=== PATIENT | female | born 1935 | race Caucasian/White ===

== ENCOUNTER 2018-07-12 12:17 | Inpatient (IN) | payer MEDICARE, OTHER ==
[2018-07-12 13:07] LABS: ADD MAN DIFF? NO
[2018-07-12] MEDS: morphine 4 MG/ML VIAL IV (13:08)
[2018-07-12] MEDS: ONDANSETRON 4 MG INJ IV (13:08)
[2018-07-12] MEDS: ASPIRIN 325 MG TAB PO (13:09)
[2018-07-12] MEDS: NITROGLYCERIN 2% 1 GM OINT PKT TD (13:09)
[2018-07-12 13:13] LABS: WHITE BLOOD COUNT 8.6 10^3/ul (4.8-10.8)
[2018-07-12 13:13] LABS: BASOPHIL # 0.1 10^3/ul (0.0-0.1); BASOPHILS % 0.7 % (0.0-2.0); EOSINOPHILS # 0.2 10^3/ul (0.0-0.5); EOSINOPHILS % 2.3 % (0.0-7.0); HEMATOCRIT 31.7 % (37.0-47.0); HEMOGLOBIN 10.6 g/dl (12.0-16.0); LYMPHOCYTES # 1.7 10^3/ul (0.8-2.9); LYMPHOCYTES % 20.3 % (15.0-51.0); MEAN CORPUSCULAR HEMOGLOBIN 31.9 pg (29.0-33.0); MEAN CORPUSCULAR HGB CONC 33.4 g/dl (32.0-37.0); MEAN CORPUSCULAR VOLUME 95.5 fl (82.0-101.0); MEAN PLATELET VOLUME 9.6 fl (7.4-10.4); MONOCYTE # 0.7 10^3/ul (0.3-0.9); MONOCYTES % 8.5 % (0.0-11.0); NEUTROPHIL # 5.8 10^3/ul (1.6-7.5); NEUTROPHILS % 67.7 % (39.0-77.0); PLATELET COUNT 221 10^3/UL (140-415); RED BLOOD COUNT 3.32 10^6/ul (4.20-5.40); RED CELL DISTRIBUTION WIDTH 12.8 % (11.5-14.5)
[2018-07-12 13:32] LABS: ALANINE AMINOTRANSFERASE 86 IU/L (13-69); ALBUMIN/GLOBULIN RATIO 1.33; ALKALINE PHOSPHATASE 62 IU/L (42-121); ANION GAP 11 (5-13); ASPARTATE AMINO TRANSFERASE 57 IU/L (15-46); BILIRUBIN,INDIRECT 0.1 mg/dl (0-1.1); BILIRUBIN,TOTAL 0.1 mg/dl (0.2-1.3); BLOOD UREA NITROGEN 30 mg/dl (7-20); CALCIUM 9.4 mg/dl (8.4-10.2); CARBON DIOXIDE 22 mmol/L (21-31); CHLORIDE 101 mmol/L (97-110); CREATININE 0.95 mg/dl (0.44-1.00); GLUCOSE 119 mg/dl (70-220); SODIUM 134 mmol/L (135-144)
[2018-07-12 13:44] LABS: B-TYPE NATRIURETIC PEPTIDE 4000 PG/ML (0-450); TROPONIN-I < 0.012 ng/ml (0.000-0.120)
[2018-07-12] MEDS ORDERED: ACETAMINOPHEN 325 MG TAB PO (14:30)
[2018-07-12] MEDS ORDERED: ALPRAZOLAM 0.5 MG TAB PO (14:30)
[2018-07-12] MEDS: FUROSEMIDE 40 MG INJ IV ×2 (16:21→18:00)
[2018-07-12] MEDS: LOSARTAN 50 MG TAB PO (16:23)
[2018-07-12] MEDS ORDERED: morphine 2 MG INJ IV (16:30)
[2018-07-12] MEDS ORDERED: NACL 0.9% 3 ML SYG IV (16:30)
[2018-07-12] MEDS ORDERED: PROPRANOLOL 20 MG TAB PO (17:00)
[2018-07-12] MEDS: ALBUTEROL/IPRATROPIUM (NEB) 3 ML AMP HHN (17:10)
[2018-07-12 19:37] LABS: CREATINE KINASE 24 IU/L (23-200)
[2018-07-12 19:47] LABS: CK INDEX 3.7; CK-MB 0.88 ng/ml (0.0-2.4)
[2018-07-12 19:51] LABS: TROPONIN-I < 0.012 ng/ml (0.000-0.120)
[2018-07-12] MEDS ORDERED: PROPRANOLOL 10 MG TAB PO (21:00)
[2018-07-12] MEDS: RANOLAZINE (SR) 500 MG TAB PO (23:18)
[2018-07-13 01:29] LABS: CREATINE KINASE 26 IU/L (23-200)
[2018-07-13 02:02] LABS: CK INDEX 2.8; CK-MB 0.73 ng/ml (0.0-2.4); TROPONIN-I 0.013 ng/ml (0.000-0.120)
[2018-07-13 05:15] LABS: ADD MAN DIFF? NO
[2018-07-13 05:26] LABS: WHITE BLOOD COUNT 8.1 10^3/ul (4.8-10.8)
[2018-07-13 05:26] LABS: BASOPHIL # 0.1 10^3/ul (0.0-0.1); BASOPHILS % 0.6 % (0.0-2.0); EOSINOPHILS # 0.3 10^3/ul (0.0-0.5); EOSINOPHILS % 3.3 % (0.0-7.0); HEMATOCRIT 29.2 % (37.0-47.0); HEMOGLOBIN 9.7 g/dl (12.0-16.0); LYMPHOCYTES # 1.7 10^3/ul (0.8-2.9); LYMPHOCYTES % 20.9 % (15.0-51.0); MEAN CORPUSCULAR HEMOGLOBIN 31.5 pg (29.0-33.0); MEAN CORPUSCULAR HGB CONC 33.2 g/dl (32.0-37.0); MEAN CORPUSCULAR VOLUME 94.8 fl (82.0-101.0); MEAN PLATELET VOLUME 9.6 fl (7.4-10.4); MONOCYTE # 0.7 10^3/ul (0.3-0.9); MONOCYTES % 8.8 % (0.0-11.0); NEUTROPHIL # 5.4 10^3/ul (1.6-7.5); PLATELET COUNT 200 10^3/UL (140-415); RED BLOOD COUNT 3.08 10^6/ul (4.20-5.40); RED CELL DISTRIBUTION WIDTH 12.7 % (11.5-14.5)
[2018-07-13] MEDS: FUROSEMIDE 40 MG INJ IV ×2 (05:35→17:19)
[2018-07-13 05:51] LABS: HEMOGLOBIN A1C 5.7 % (0-5.9)
[2018-07-13 05:51] LABS: ALANINE AMINOTRANSFERASE 71 IU/L (13-69); ALBUMIN 3.2 g/dl (3.3-4.9); ALBUMIN/GLOBULIN RATIO 1.18; ALKALINE PHOSPHATASE 49 IU/L (42-121); ANION GAP 10 (5-13); ASPARTATE AMINO TRANSFERASE 31 IU/L (15-46); BILIRUBIN,INDIRECT 0.3 mg/dl (0-1.1); BILIRUBIN,TOTAL 0.3 mg/dl (0.2-1.3); BLOOD UREA NITROGEN 31 mg/dl (7-20); CARBON DIOXIDE 25 mmol/L (21-31); CHLORIDE 100 mmol/L (97-110); CREATININE 1.12 mg/dl (0.44-1.00); GLUCOSE 94 mg/dl (70-220); POTASSIUM 4.2 mmol/L (3.5-5.1); SODIUM 135 mmol/L (135-144); TOTAL PROTEIN 5.9 g/dl (6.1-8.1)
[2018-07-13] MEDS: LOSARTAN 50 MG TAB PO (08:53)
[2018-07-13] MEDS: RANOLAZINE (SR) 500 MG TAB PO ×2 (08:54→20:38)
[2018-07-13] MEDS ORDERED: MEMANTINE 5 MG TAB PO (09:00)
[2018-07-13] MEDS ORDERED: MELOXICAM 15 MG TAB PO (09:00)
[2018-07-13] MEDS ORDERED: TRIAMTERENE/HCTZ (37.5-25) CAP PO (09:00)
[2018-07-13] MEDS: ENOXAPARIN 30 MG/0.3 ML SYG SC (09:03)
[2018-07-13] MEDS: ISOSORBIDE DINITRATE 20 MG TAB PO ×2 (13:19→20:39)
[2018-07-14] MEDS: FUROSEMIDE 40 MG INJ IV (05:11)
[2018-07-14 05:57] LABS: ADD MAN DIFF? NO
[2018-07-14 06:02] LABS: BASOPHIL # 0.1 10^3/ul (0.0-0.1); BASOPHILS % 0.6 % (0.0-2.0); EOSINOPHILS # 0.2 10^3/ul (0.0-0.5); EOSINOPHILS % 2.7 % (0.0-7.0); HEMATOCRIT 31.6 % (37.0-47.0); LYMPHOCYTES # 1.6 10^3/ul (0.8-2.9); LYMPHOCYTES % 17.9 % (15.0-51.0); MEAN CORPUSCULAR HEMOGLOBIN 32.2 pg (29.0-33.0); MEAN CORPUSCULAR HGB CONC 34.8 g/dl (32.0-37.0); MEAN CORPUSCULAR VOLUME 92.4 fl (82.0-101.0); MEAN PLATELET VOLUME 9.9 fl (7.4-10.4); MONOCYTE # 0.8 10^3/ul (0.3-0.9); MONOCYTES % 9.4 % (0.0-11.0); NEUTROPHIL # 6.1 10^3/ul (1.6-7.5); NEUTROPHILS % 69.1 % (39.0-77.0); PLATELET COUNT 232 10^3/UL (140-415); RED BLOOD COUNT 3.42 10^6/ul (4.20-5.40); RED CELL DISTRIBUTION WIDTH 12.4 % (11.5-14.5)
[2018-07-14 06:02] LABS: WHITE BLOOD COUNT 8.8 10^3/ul (4.8-10.8)
[2018-07-14 06:46] LABS: ANION GAP 10 (5-13); BLOOD UREA NITROGEN 35 mg/dl (7-20); CALCIUM 9.6 mg/dl (8.4-10.2); CARBON DIOXIDE 30 mmol/L (21-31); CHLORIDE 93 mmol/L (97-110); CREATININE 1.17 mg/dl (0.44-1.00); GLUCOSE 129 mg/dl (70-220); IRON 38 ug/dl (35-150); POTASSIUM 4.2 mmol/L (3.5-5.1); SODIUM 133 mmol/L (135-144)
[2018-07-14 06:55] LABS: % IRON SATURATION 13 % SAT (22-52); TOTAL IRON BINDING CAPACITY 300 ug/dl (241-421)
[2018-07-14 07:23] LABS: FERRITIN 89.9 ng/ml (11.1-264.0)
[2018-07-14] MEDS: ASPIRIN 81 MG TAB PO (09:50)
[2018-07-14] MEDS: RANOLAZINE (SR) 500 MG TAB PO (09:50)
[2018-07-14] MEDS: ISOSORBIDE DINITRATE 20 MG TAB PO ×2 (09:50→15:44)
[2018-07-14] MEDS: LOSARTAN 50 MG TAB PO (09:51)
[2018-07-14] MEDS: ENOXAPARIN 30 MG/0.3 ML SYG SC (10:19)
[2018-07-14] MEDS: REGADENOSON 0.4 MG/5 ML SYG (13:35)
== END 2018-07-14 18:39 | disposition home or self-care (01) | DRG 291 ==
LOC: E/R 12:17 → 6WM 07-13 19:01 → ICU 18:06
PROC: C22G1ZZ Tomographic (Tomo) Nuclear Medicine Imaging of Myocardium using Technetium 99m (Tc-99m) (ICD-10-PCS; principal; 2018-07-14)
PROC: 4A02XM4 Measurement of Cardiac Total Activity, External Approach (ICD-10-PCS; 2018-07-14)
PROC: 3E033HZ Introduction of Radioactive Substance into Peripheral Vein, Percutaneous Approach (ICD-10-PCS; 2018-07-14)
DX: I11.0 Hypertensive heart disease with heart failure (principal); J96.91 Respiratory failure, unspecified with hypoxia; I16.1 Hypertensive emergency; I25.10 Atherosclerotic heart disease of native coronary artery without angina pectoris; I50.33 Acute on chronic diastolic (congestive) heart failure; Z95.1 Presence of aortocoronary bypass graft; D64.9 Anemia, unspecified; R74.0 Nonspecific elevation of levels of transaminase and lactic acid dehydrogenase [LDH]; E11.9 Type 2 diabetes mellitus without complications; E78.5 Hyperlipidemia, unspecified; Z95.5 Presence of coronary angioplasty implant and graft; F41.9 Anxiety disorder, unspecified
CPT/HCPCS: 36415; 71045; 78452; 80048; 80053; 82550; 82553; 82728; 83036; 83540; 83880; 84484; 85025; 87081; 90686; 93005; 93017; 93306; 94664; 97162; 99217; 99285-25; G0378

== ENCOUNTER 2018-07-21 07:41 | Observation (INO) | payer MEDICARE, OTHER ==
[2018-07-21 08:26] LABS: ADD MAN DIFF? NO
[2018-07-21 08:31] LABS: WHITE BLOOD COUNT 7.5 10^3/ul (4.8-10.8)
[2018-07-21 08:31] LABS: BASOPHIL # 0.1 10^3/ul (0.0-0.1); BASOPHILS % 0.7 % (0.0-2.0); EOSINOPHILS # 0.5 10^3/ul (0.0-0.5); HEMATOCRIT 30.7 % (37.0-47.0); HEMOGLOBIN 10.3 g/dl (12.0-16.0); LYMPHOCYTES # 1.8 10^3/ul (0.8-2.9); LYMPHOCYTES % 23.5 % (15.0-51.0); MEAN CORPUSCULAR HEMOGLOBIN 31.7 pg (29.0-33.0); MEAN CORPUSCULAR HGB CONC 33.6 g/dl (32.0-37.0); MEAN CORPUSCULAR VOLUME 94.5 fl (82.0-101.0); MEAN PLATELET VOLUME 9.4 fl (7.4-10.4); MONOCYTE # 0.6 10^3/ul (0.3-0.9); MONOCYTES % 8.1 % (0.0-11.0); NEUTROPHIL # 4.6 10^3/ul (1.6-7.5); NEUTROPHILS % 61.4 % (39.0-77.0); PLATELET COUNT 202 10^3/UL (140-415); RED BLOOD COUNT 3.25 10^6/ul (4.20-5.40); RED CELL DISTRIBUTION WIDTH 12.4 % (11.5-14.5)
[2018-07-21 08:35] LABS: ANION GAP 6 (5-13); BLOOD UREA NITROGEN 34 mg/dl (7-20); CALCIUM 9.2 mg/dl (8.4-10.2); CARBON DIOXIDE 27 mmol/L (21-31); CHLORIDE 102 mmol/L (97-110); CREATININE 1.14 mg/dl (0.44-1.00); GLUCOSE 140 mg/dl (70-220); POTASSIUM 4.3 mmol/L (3.5-5.1); SODIUM 135 mmol/L (135-144)
[2018-07-21 08:47] LABS: TROPONIN-I < 0.012 ng/ml (0.000-0.120)
[2018-07-21] MEDS: ASPIRIN 81 MG TAB PO (09:00)
[2018-07-21] MEDS: NITROGLYCERIN (SL) 0.4 MG TAB SL (09:01)
[2018-07-21] MEDS: FUROSEMIDE 40 MG INJ IV ×2 (09:01→17:21)
[2018-07-21] MEDS: NITROGLYCERIN 2% 1 GM OINT PKT TD (09:02)
[2018-07-21] MEDS ORDERED: ONDANSETRON 4 MG INJ IV ×2 (09:30→14:30)
[2018-07-21] MEDS ORDERED: ACETAMINOPHEN 325 MG TAB PO ×2 (09:30→14:30)
[2018-07-21 14:25] LABS: INR 1.14; PROTIME 14.8 Sec (11.9-14.9); PT RATIO 1.2
[2018-07-21 14:26] LABS: PARTIAL THROMBOPLASTIN TIME 29.3 Sec (23.0-35.0)
[2018-07-21] MEDS ORDERED: NACL 0.9% 3 ML SYG IV (14:30)
[2018-07-21] MEDS ORDERED: HYDROCODONE/APAP (5/325) TAB PO (14:30)
[2018-07-21] MEDS ORDERED: morphine 2 MG INJ IV (14:30)
[2018-07-21] MEDS ORDERED: MAGNESIUM HYDROXIDE 30ML CUP PO (14:30)
[2018-07-21] MEDS ORDERED: traMADol 50 MG TAB PO (14:30)
[2018-07-21] MEDS ORDERED: LORAZEPAM 2 MG INJ IV (14:30)
[2018-07-21] MEDS ORDERED: DOCUSATE SODIUM 100 MG CAP PO (14:30)
[2018-07-21] MEDS ORDERED: ALBUTEROL/IPRATROPIUM (NEB) 3 ML AMP HHN (14:30)
[2018-07-21] MEDS ORDERED: NITROGLYCERIN (SL) 0.4 MG TAB SL (14:30)
[2018-07-21] MEDS ORDERED: hydrALAzine 20 MG INJ IV (14:30)
[2018-07-21] MEDS ORDERED: NA PHOSPHATE/BIPHOS 133 ML ENEMA PR (14:30)
[2018-07-21 14:49] LABS: FREE T4 (FREE THYROXINE) 1.14 ng/dl (0.85-1.93)
[2018-07-21 14:54] LABS: CREATINE KINASE 23 IU/L (23-200)
[2018-07-21 15:05] LABS: CK INDEX 4.5; CK-MB 1.04 ng/ml (0.0-2.4); TROPONIN-I 0.027 ng/ml (0.000-0.120)
[2018-07-21] MEDS ORDERED: GLUCOSE GEL 15 GRAM TUBE PO ×2 (15:30)
[2018-07-21] MEDS ORDERED: DEXTROSE 50% 50 ML SYRINGE IV ×2 (15:30)
[2018-07-21] MEDS ORDERED: GLUCAGON 1 MG INJ IM (15:30)
[2018-07-21] MEDS ORDERED: GLUCOSE GEL 15 GRAM TUBE BUCCAL (15:30)
[2018-07-21] MEDS: INSULIN ASPART [NOVOLOG] 3 ML PEN SC ×2 (17:00→21:00)
[2018-07-21 19:02] LABS: ADD UMIC NO; UR ASCORBIC ACID NEGATIVE (NEGATIVE); UR BILIRUBIN (Dip) NEGATIVE (NEGATIVE); UR BLOOD (Dip) NEGATIVE (NEGATIVE); UR CLARITY CLEAR (CLEAR); UR COLOR COLORLESS (YELLOW); UR GLUCOSE (Dip) NEGATIVE (NEGATIVE); UR KETONES (Dip) NEGATIVE (NEGATIVE); UR LEUKOCYTE ESTERASE (Dip) NEGATIVE Leu/ul (NEGATIVE); UR NITRITE (Dip) NEGATIVE (NEGATIVE); UR SPECIFIC GRAVITY (Dip) 1.005 (1.003-1.030); UR TOTAL PROTEIN (Dip) NEGATIVE (NEGATIVE); UR UROBILINOGEN (Dip) NEGATIVE (NEGATIVE)
[2018-07-21 20:42] LABS: CREATINE KINASE 27 IU/L (23-200)
[2018-07-21 20:56] LABS: CK INDEX 2.6; CK-MB 0.71 ng/ml (0.0-2.4); TROPONIN-I 0.027 ng/ml (0.000-0.120)
[2018-07-21] MEDS ORDERED: HEPARIN 5,000 UNIT/0.5 ML VIAL (21:02)
[2018-07-21] MEDS: RANOLAZINE (SR) 500 MG TAB PO (21:06)
[2018-07-21] MEDS: HEPARIN 5,000 UNIT/1 ML VIAL SC (21:19)
[2018-07-21] MEDS: ACCU-CHEK XX (23:17)
[2018-07-22] MEDS ORDERED: ACCU-CHEK XX (02:00)
[2018-07-22] MEDS: PANTOPRAZOLE (EC) 40 MG TAB PO (05:07)
[2018-07-22 06:05] LABS: ADD MAN DIFF? NO
[2018-07-22 06:13] LABS: BASOPHIL # 0.1 10^3/ul (0.0-0.1); EOSINOPHILS # 0.5 10^3/ul (0.0-0.5); LYMPHOCYTES # 2.1 10^3/ul (0.8-2.9); LYMPHOCYTES % 26.3 % (15.0-51.0); MEAN CORPUSCULAR HEMOGLOBIN 31.2 pg (29.0-33.0); MEAN CORPUSCULAR HGB CONC 33.3 g/dl (32.0-37.0); MEAN CORPUSCULAR VOLUME 93.5 fl (82.0-101.0); MEAN PLATELET VOLUME 9.4 fl (7.4-10.4); MONOCYTE # 0.7 10^3/ul (0.3-0.9); MONOCYTES % 8.7 % (0.0-11.0); NEUTROPHIL # 4.5 10^3/ul (1.6-7.5); NEUTROPHILS % 57.6 % (39.0-77.0); PLATELET COUNT 226 10^3/UL (140-415); RED BLOOD COUNT 3.85 10^6/ul (4.20-5.40); RED CELL DISTRIBUTION WIDTH 12.2 % (11.5-14.5)
[2018-07-22 06:13] LABS: WHITE BLOOD COUNT 7.8 10^3/ul (4.8-10.8)
[2018-07-22 06:26] LABS: HEMOGLOBIN A1C 5.6 % (0-5.9)
[2018-07-22 06:39] LABS: ANION GAP 12 (5-13); BLOOD UREA NITROGEN 39 mg/dl (7-20); CALCIUM 9.8 mg/dl (8.4-10.2); CARBON DIOXIDE 32 mmol/L (21-31); CHLORIDE 94 mmol/L (97-110); CHOL/HDL RATIO 4.3 RATIO; CHOLESTEROL 207 mg/dl (100-200); CREATININE 1.44 mg/dl (0.44-1.00); GLUCOSE 155 mg/dl (70-220); HDL CHOLESTEROL 48 mg/dl (33-92); LDL CHOLESTEROL,CALCULATED 138 mg/dl; MAGNESIUM 1.6 mg/dl (1.7-2.5); PHOSPHORUS 4.7 mg/dl (2.5-4.9); POTASSIUM 4.1 mmol/L (3.5-5.1); SODIUM 138 mmol/L (135-144); TRIGLYCERIDES 104 mg/dl (0-149)
[2018-07-22] MEDS ORDERED: HEPARIN 5,000 UNIT/0.5 ML VIAL (07:55)
[2018-07-22] MEDS: RANOLAZINE (SR) 500 MG TAB PO (08:02)
[2018-07-22] MEDS: FUROSEMIDE 40 MG INJ IV (08:02)
[2018-07-22] MEDS: HEPARIN 5,000 UNIT/1 ML VIAL SC (08:08)
[2018-07-22] MEDS: INSULIN ASPART [NOVOLOG] 3 ML PEN SC ×2 (08:08→12:00)
[2018-07-22] MEDS: SOD CHLORIDE 0.9% 250 ML IV (11:44)
[2018-07-22] MEDS: MAGNESIUM SULFATE 1 GM/D5W 100 ML IVPB ×2 (13:44→15:17)
== END 2018-07-22 17:30 | disposition home or self-care (01) ==
LOC: E/R 07:41 → 6WM 09:23
DX: R07.9 Chest pain, unspecified (principal); I25.10 Atherosclerotic heart disease of native coronary artery without angina pectoris; I34.0 Nonrheumatic mitral (valve) insufficiency; Z86.79 Personal history of other diseases of the circulatory system; E11.9 Type 2 diabetes mellitus without complications; Z95.1 Presence of aortocoronary bypass graft; Z79.82 Long term (current) use of aspirin; I16.0 Hypertensive urgency
CPT/HCPCS: 36415; 71045; 80048; 80061; 81003; 82550; 82553; 82962; 83036; 83735; 84100; 84439; 84443; 84484; 85025; 85610; 85730; 87081; 87086; 92610; 93005; 96374; 97161; 99285-25; G0378

== ENCOUNTER 2018-10-30 11:35 | Inpatient (IN) | payer MEDICARE, OTHER ==
[2018-10-30 12:09] LABS: ADD MAN DIFF? NO
[2018-10-30] MEDS: NITROGLYCERIN 2% 1 GM OINT PKT TD (12:13)
[2018-10-30] MEDS: ASPIRIN 81 MG TAB PO (12:13)
[2018-10-30 12:15] LABS: WHITE BLOOD COUNT 8.2 10^3/ul (4.8-10.8)
[2018-10-30 12:15] LABS: BASOPHIL # 0.1 10^3/ul (0.0-0.1); EOSINOPHILS # 0.1 10^3/ul (0.0-0.5); EOSINOPHILS % 1.3 % (0.0-7.0); HEMATOCRIT 34.6 % (37.0-47.0); HEMOGLOBIN 11.5 g/dl (12.0-16.0); LYMPHOCYTES # 1.7 10^3/ul (0.8-2.9); MEAN CORPUSCULAR HEMOGLOBIN 31.8 pg (29.0-33.0); MEAN CORPUSCULAR HGB CONC 33.2 g/dl (32.0-37.0); MEAN CORPUSCULAR VOLUME 95.6 fl (82.0-101.0); MEAN PLATELET VOLUME 9.3 fl (7.4-10.4); MONOCYTE # 0.8 10^3/ul (0.3-0.9); MONOCYTES % 9.7 % (0.0-11.0); NEUTROPHIL # 5.4 10^3/ul (1.6-7.5); NEUTROPHILS % 66.6 % (39.0-77.0); PLATELET COUNT 227 10^3/UL (140-415); RED BLOOD COUNT 3.62 10^6/ul (4.20-5.40); RED CELL DISTRIBUTION WIDTH 12.8 % (11.5-14.5)
[2018-10-30 12:36] LABS: ALANINE AMINOTRANSFERASE 19 IU/L (13-69); ALBUMIN 4.2 g/dl (3.3-4.9); ALBUMIN/GLOBULIN RATIO 1.35; ALKALINE PHOSPHATASE 41 IU/L (42-121); ANION GAP 8 (5-13); ASPARTATE AMINO TRANSFERASE 24 IU/L (15-46); BILIRUBIN,INDIRECT 0.2 mg/dl (0-1.1); BILIRUBIN,TOTAL 0.2 mg/dl (0.2-1.3); BLOOD UREA NITROGEN 27 mg/dl (7-20); CALCIUM 9.9 mg/dl (8.4-10.2); CARBON DIOXIDE 31 mmol/L (21-31); CHLORIDE 98 mmol/L (97-110); CREATININE 1.01 mg/dl (0.44-1.00); GLUCOSE 126 mg/dl (70-220); POTASSIUM 4.1 mmol/L (3.5-5.1); SODIUM 137 mmol/L (135-144); TOTAL PROTEIN 7.3 g/dl (6.1-8.1)
[2018-10-30 12:45] LABS: B-TYPE NATRIURETIC PEPTIDE 648 PG/ML (0-450)
[2018-10-30 12:47] LABS: TROPONIN-I < 0.012 ng/ml (0.000-0.120)
[2018-10-30] MEDS ORDERED: ONDANSETRON 4 MG INJ IV (14:00)
[2018-10-30] MEDS ORDERED: ACETAMINOPHEN 325 MG TAB PO (14:00)
[2018-10-30] MEDS ORDERED: traMADol 50 MG TAB PO (14:00)
[2018-10-30] MEDS: AMLODIPINE 5 MG TAB PO (15:41)
[2018-10-30] MEDS ORDERED: hydrALAzine 20 MG INJ IV (18:00)
[2018-10-30 18:46] LABS: MAGNESIUM 1.7 mg/dl (1.7-2.5)
[2018-10-30 18:46] LABS: CREATINE KINASE 20 IU/L (23-200)
[2018-10-30 18:59] LABS: CK INDEX 3.4; CK-MB 0.67 ng/ml (0.0-2.4); TROPONIN-I 0.013 ng/ml (0.000-0.120)
[2018-10-30] MEDS: RANOLAZINE (SR) 500 MG TAB PO (20:26)
[2018-10-30] MEDS: ISOSORBIDE DINITRATE 10 MG TAB PO (20:26)
[2018-10-31 01:10] LABS: CREATINE KINASE 22 IU/L (23-200)
[2018-10-31 01:24] LABS: CK INDEX 2.1; CK-MB 0.47 ng/ml (0.0-2.4); TROPONIN-I < 0.012 ng/ml (0.000-0.120)
[2018-10-31] MEDS: PANTOPRAZOLE (EC) 40 MG TAB PO (05:41)
[2018-10-31] MEDS: RANOLAZINE (SR) 500 MG TAB PO ×2 (08:48→20:54)
[2018-10-31] MEDS: AMLODIPINE 5 MG TAB PO (08:48)
[2018-10-31] MEDS: LOSARTAN 50 MG TAB PO (08:48)
[2018-10-31] MEDS: ASPIRIN (EC) 81 MG TAB PO (08:48)
[2018-10-31] MEDS: ISOSORBIDE DINITRATE 10 MG TAB PO ×3 (08:49→20:54)
[2018-10-31] MEDS: ENOXAPARIN 30 MG/0.3 ML SYG SC (08:54)
[2018-10-31] MEDS: MAGNESIUM SULFATE 1 GM/D5W 100 ML IVPB (11:51)
[2018-10-31 12:05] LABS: MAGNESIUM 1.8 mg/dl (1.7-2.5)
[2018-10-31] MEDS: METOPROLOL 25 MG TAB PO ×2 (14:42→20:54)
[2018-10-31] MEDS: METOPROLOL 5 MG INJ ×2 (15:49→16:06)
[2018-10-31] MEDS ORDERED: IOHEXOL 100 ML (16:04)
[2018-10-31] MEDS ORDERED: SOD CHLORIDE 0.9% 100 ML (16:04)
[2018-10-31] MEDS ORDERED: IOHEXOL 350MG/ML 50 ML BTL (16:04)
[2018-10-31 18:33] LABS: ADD UMIC NO; UR ASCORBIC ACID NEGATIVE (NEGATIVE); UR BILIRUBIN (Dip) NEGATIVE (NEGATIVE); UR BLOOD (Dip) NEGATIVE (NEGATIVE); UR CLARITY CLEAR (CLEAR); UR COLOR YELLOW (YELLOW); UR GLUCOSE (Dip) NEGATIVE (NEGATIVE); UR KETONES (Dip) NEGATIVE (NEGATIVE); UR LEUKOCYTE ESTERASE (Dip) NEGATIVE Leu/ul (NEGATIVE); UR NITRITE (Dip) NEGATIVE (NEGATIVE); UR SPECIFIC GRAVITY (Dip) 1.039 (1.003-1.030); UR TOTAL PROTEIN (Dip) NEGATIVE (NEGATIVE); UR UROBILINOGEN (Dip) NEGATIVE (NEGATIVE)
[2018-10-31 18:41] LABS: SODIUM,URINE RANDOM 74 mmol/L (30-90)
[2018-11-01] MEDS: morphine 2 MG INJ IV (04:37)
[2018-11-01] MEDS: PANTOPRAZOLE (EC) 40 MG TAB PO (05:16)
[2018-11-01 05:56] LABS: ADD MAN DIFF? NO
[2018-11-01 06:07] LABS: BASOPHIL # 0.1 10^3/ul (0.0-0.1); BASOPHILS % 0.8 % (0.0-2.0); EOSINOPHILS # 0.2 10^3/ul (0.0-0.5); EOSINOPHILS % 2.6 % (0.0-7.0); LYMPHOCYTES # 2.4 10^3/ul (0.8-2.9); LYMPHOCYTES % 26.8 % (15.0-51.0); MEAN CORPUSCULAR HEMOGLOBIN 31.5 pg (29.0-33.0); MEAN CORPUSCULAR HGB CONC 33.3 g/dl (32.0-37.0); MEAN CORPUSCULAR VOLUME 94.6 fl (82.0-101.0); MEAN PLATELET VOLUME 9.8 fl (7.4-10.4); MONOCYTE # 0.8 10^3/ul (0.3-0.9); MONOCYTES % 9.1 % (0.0-11.0); NEUTROPHIL # 5.3 10^3/ul (1.6-7.5); NEUTROPHILS % 60.4 % (39.0-77.0); PLATELET COUNT 225 10^3/UL (140-415); RED BLOOD COUNT 3.49 10^6/ul (4.20-5.40); RED CELL DISTRIBUTION WIDTH 12.6 % (11.5-14.5)
[2018-11-01 06:07] LABS: WHITE BLOOD COUNT 8.8 10^3/ul (4.8-10.8)
[2018-11-01 06:30] LABS: ANION GAP 14 (5-13); BLOOD UREA NITROGEN 21 mg/dl (7-20); CALCIUM 9.3 mg/dl (8.4-10.2); CARBON DIOXIDE 26 mmol/L (21-31); CHLORIDE 98 mmol/L (97-110); CREATININE 0.97 mg/dl (0.44-1.00); GLUCOSE 136 mg/dl (70-220); POTASSIUM 4.2 mmol/L (3.5-5.1); SODIUM 138 mmol/L (135-144)
[2018-11-01 06:51] LABS: PHOSPHORUS 3.7 mg/dl (2.5-4.9)
[2018-11-01 06:51] LABS: MAGNESIUM 2.1 mg/dl (1.7-2.5)
[2018-11-01] MEDS: ASPIRIN (EC) 81 MG TAB PO (09:08)
[2018-11-01] MEDS: ISOSORBIDE DINITRATE 10 MG TAB PO ×2 (09:08→13:00)
[2018-11-01] MEDS: AMLODIPINE 5 MG TAB PO (09:08)
[2018-11-01] MEDS: METOPROLOL 25 MG TAB PO (09:08)
[2018-11-01] MEDS: RANOLAZINE (SR) 500 MG TAB PO (09:09)
[2018-11-01] MEDS: LOSARTAN 50 MG TAB PO (09:09)
[2018-11-01] MEDS: ENOXAPARIN 30 MG/0.3 ML SYG SC (09:22)
[2018-11-01 15:42] LABS: CREATININE, RANDOM URINE 29 mg/dL (20-275); MICROALBUMIN 0.5 mg/dL; MICROALBUMIN/CREATININE RATIO 17 (<30)
[2018-11-02] MEDS ORDERED: LOSARTAN 50 MG TAB PO (09:00)
== END 2018-11-01 19:04 | disposition home or self-care (01) | DRG 313 ==
LOC: 6WM 14:38 → E/R 11:35 → 6WM 13:44
DX: R07.9 Chest pain, unspecified (principal); I13.0 Hypertensive heart and chronic kidney disease with heart failure and stage 1 through stage 4 chronic kidney disease, or unspecified chronic kidney disease; E11.42 Type 2 diabetes mellitus with diabetic polyneuropathy; I11.0 Hypertensive heart disease with heart failure; I50.9 Heart failure, unspecified; D64.9 Anemia, unspecified; E78.5 Hyperlipidemia, unspecified; I25.10 Atherosclerotic heart disease of native coronary artery without angina pectoris; E11.22 Type 2 diabetes mellitus with diabetic chronic kidney disease; N18.9 Chronic kidney disease, unspecified; Z79.84 Long term (current) use of oral hypoglycemic drugs; Z95.1 Presence of aortocoronary bypass graft; Z95.5 Presence of coronary angioplasty implant and graft
CPT/HCPCS: 36415; 71045; 75571; 75574; 80048; 80053; 81003; 82043; 82550; 82553; 82962; 83735; 83880; 84100; 84155; 84300; 84484; 85025; 87081; 93005; 93306; 97162; 99285-25; G0378

== ENCOUNTER 2018-11-09 08:27 | Day surgery (SDC) | payer MEDICARE, OTHER ==
[2018-11-09] MEDS ORDERED: FAMOTIDINE 20 MG TAB PO (09:00)
[2018-11-09] MEDS ORDERED: DIAZEPAM 5 MG TAB PO (09:00)
[2018-11-09] MEDS ORDERED: DIPHENHYDRAMINE 50 MG CAP PO (09:00)
[2018-11-09] MEDS ORDERED: SOD CHLORIDE 0.45% 1,000 ML IV (09:00)
[2018-11-09 09:07] LABS: ADD MAN DIFF? NO
[2018-11-09 09:11] LABS: BASOPHIL # 0.1 10^3/ul (0.0-0.1); BASOPHILS % 0.6 % (0.0-2.0); EOSINOPHILS # 0.2 10^3/ul (0.0-0.5); EOSINOPHILS % 2.7 % (0.0-7.0); HEMATOCRIT 36.6 % (37.0-47.0); HEMOGLOBIN 11.8 g/dl (12.0-16.0); LYMPHOCYTES # 1.7 10^3/ul (0.8-2.9); LYMPHOCYTES % 20.6 % (15.0-51.0); MEAN CORPUSCULAR HEMOGLOBIN 30.7 pg (29.0-33.0); MEAN CORPUSCULAR HGB CONC 32.2 g/dl (32.0-37.0); MEAN CORPUSCULAR VOLUME 95.3 fl (82.0-101.0); MEAN PLATELET VOLUME 9.6 fl (7.4-10.4); MONOCYTE # 0.6 10^3/ul (0.3-0.9); MONOCYTES % 7.3 % (0.0-11.0); NEUTROPHIL # 5.6 10^3/ul (1.6-7.5); NEUTROPHILS % 68.2 % (39.0-77.0); PLATELET COUNT 245 10^3/UL (140-415); RED BLOOD COUNT 3.84 10^6/ul (4.20-5.40); RED CELL DISTRIBUTION WIDTH 12.9 % (11.5-14.5)
[2018-11-09 09:11] LABS: WHITE BLOOD COUNT 8.2 10^3/ul (4.8-10.8)
[2018-11-09 09:19] LABS: INR 1.04; PROTIME 13.7 Sec (11.9-14.9); PT RATIO 1.1
[2018-11-09 09:26] LABS: ALANINE AMINOTRANSFERASE 31 IU/L (13-69); ALBUMIN 4.3 g/dl (3.3-4.9); ALKALINE PHOSPHATASE 46 IU/L (42-121); ANION GAP 11 (5-13); ASPARTATE AMINO TRANSFERASE 28 IU/L (15-46); BILIRUBIN,INDIRECT 0.2 mg/dl (0-1.1); BILIRUBIN,TOTAL 0.2 mg/dl (0.2-1.3); CALCIUM 9.9 mg/dl (8.4-10.2); CARBON DIOXIDE 28 mmol/L (21-31); CHLORIDE 102 mmol/L (97-110); GLUCOSE 142 mg/dl (70-220); POTASSIUM 4.4 mmol/L (3.5-5.1); SODIUM 141 mmol/L (135-144); TOTAL PROTEIN 7.6 g/dl (6.1-8.1)
[2018-11-09] MEDS ORDERED: LIDOCAINE 1% (MDV) 20 ML INJ (09:44)
[2018-11-09] MEDS ORDERED: IODIXANOL LOCM 100 ML BTL (09:44)
[2018-11-09] MEDS ORDERED: HEPARIN 1000 UNITS/ML 10 ML INJ (09:44)
[2018-11-09] MEDS ORDERED: MIDAZOLAM 1 MG/ML 2 ML INJ (09:44)
[2018-11-09] MEDS ORDERED: VERAPAMIL 5 MG INJ ×2 (09:45→10:08)
[2018-11-09] MEDS ORDERED: NITROGLYCERIN (IC) 100 MCG/ML INJ (09:45)
[2018-11-09] MEDS ORDERED: FENTAnyl 50 MCG/ML VIAL (09:45)
[2018-11-09 09:47] LABS: BLOOD UREA NITROGEN 30 mg/dl (7-20); CREATININE 1.08 mg/dl (0.44-1.00)
[2018-11-09] MEDS ORDERED: SOD CHLORIDE 0.9% 1,000 ML IV (11:44)
[2018-11-09] MEDS ORDERED: ONDANSETRON 4 MG INJ IV (12:00)
[2018-11-09] MEDS ORDERED: HOLD all METFORMIN and METFORMIN CONTAINING medications for 48 hours post procedure. Chec XX (12:00)
[2018-11-09] MEDS ORDERED: AL HYDROX/MG HYDROX/SIMETH 30 ML CUP PO (12:00)
[2018-11-09] MEDS ORDERED: morphine 2 MG INJ IV (12:00)
[2018-11-09] MEDS ORDERED: ACETAMINOPHEN 325 MG TAB PO (12:00)
== END 2018-11-09 15:52 | disposition home or self-care (01) ==
LOC: SDS 08:27
DX: I25.10 Atherosclerotic heart disease of native coronary artery without angina pectoris (principal)
CPT/HCPCS: 80053; 82962; 85025; 85610; 85730; 93459

== ENCOUNTER 2018-11-18 23:46 | Emergency (ER) | payer MEDICARE, OTHER ==
[2018-11-19] MEDS: SOD CHLORIDE 0.9% 500 ML IV (01:43)
[2018-11-19] MEDS: KETOROLAC 15 MG INJ IV (01:44)
[2018-11-19 03:02] LABS: ADD MAN DIFF? NO; BASOPHILS % 0.4 % (0.0-2.0); EOSINOPHILS # 0.3 10^3/ul (0.0-0.5); EOSINOPHILS % 2.8 % (0.0-7.0); HEMATOCRIT 32.4 % (37.0-47.0); HEMOGLOBIN 10.6 g/dl (12.0-16.0); LYMPHOCYTES # 2.3 10^3/ul (0.8-2.9); LYMPHOCYTES % 26.2 % (15.0-51.0); MEAN CORPUSCULAR HEMOGLOBIN 30.8 pg (29.0-33.0); MEAN CORPUSCULAR HGB CONC 32.7 g/dl (32.0-37.0); MEAN CORPUSCULAR VOLUME 94.2 fl (82.0-101.0); MEAN PLATELET VOLUME 10.3 fl (7.4-10.4); MONOCYTE # 0.9 10^3/ul (0.3-0.9); MONOCYTES % 9.6 % (0.0-11.0); NEUTROPHIL # 5.4 10^3/ul (1.6-7.5); NEUTROPHILS % 60.4 % (39.0-77.0); PLATELET COUNT 234 10^3/UL (140-415); RED BLOOD COUNT 3.44 10^6/ul (4.20-5.40); RED CELL DISTRIBUTION WIDTH 12.7 % (11.5-14.5)
[2018-11-19 03:02] LABS: WHITE BLOOD COUNT 8.9 10^3/ul (4.8-10.8)
[2018-11-19 03:40] LABS: ALANINE AMINOTRANSFERASE 27 IU/L (13-69); ALBUMIN 4.3 g/dl (3.3-4.9); ALBUMIN/GLOBULIN RATIO 1.26; ALKALINE PHOSPHATASE 44 IU/L (42-121); ANION GAP 15 (5-13); ASPARTATE AMINO TRANSFERASE 21 IU/L (15-46); BILIRUBIN,INDIRECT 0.4 mg/dl (0-1.1); BILIRUBIN,TOTAL 0.4 mg/dl (0.2-1.3); BLOOD UREA NITROGEN 30 mg/dl (7-20); CARBON DIOXIDE 28 mmol/L (21-31); CHLORIDE 98 mmol/L (97-110); CREATININE 1.12 mg/dl (0.44-1.00); GLUCOSE 114 mg/dl (70-220); LIPASE 70 U/L (23-300); POTASSIUM 4.4 mmol/L (3.5-5.1); SODIUM 141 mmol/L (135-144); TOTAL PROTEIN 7.7 g/dl (6.1-8.1)
[2018-11-19 03:52] LABS: TROPONIN-I < 0.012 ng/ml (0.000-0.120)
== END 2018-11-19 06:28 | disposition home or self-care (01) ==
LOC: E/R 23:46
DX: F41.9 Anxiety disorder, unspecified (principal); I25.10 Atherosclerotic heart disease of native coronary artery without angina pectoris; I50.9 Heart failure, unspecified; I10 Essential (primary) hypertension; E11.9 Type 2 diabetes mellitus without complications; Z79.82 Long term (current) use of aspirin; Z79.84 Long term (current) use of oral hypoglycemic drugs
CPT/HCPCS: 36415; 71045; 80053; 83690; 84484; 85025; 93005; 96374; 99284-25